=== PATIENT | female | born 1985 | race Asian ===

== ENCOUNTER → 2020-10-08 11:39 | Outpatient (CLI) | payer OTHER, SELFPAY ==
[2020-10-08 13:05] LABS: NATERA MAILED SPECIMEN
== END ==
PROVIDERS: PCP Family Medicine; Visit Provider Obstetrics & Gynecology
DX: Z31.5 Encounter for procreative genetic counseling (principal)
CPT/HCPCS: 36415

== ENCOUNTER 2022-02-27 12:08 | Inpatient (IN) | payer BC, SELFPAY ==
[2022-02-27] VITALS (19 sets, daily range): BP systolic 102–138; BP diastolic 61–86; PULSE 71–100; TEMP 36.4–36.6; O2SAT 94–100; BMI 26.8
[2022-02-27] MEDS: Lactated Ringers 1,000 ML 50 ML IV ×2 (13:00→22:26)
[2022-02-27 13:05] LABS: Absolute Lymphocyte Count 1.54 X10^3/uL (0.83-4.51); Absolute Neutrophil Count 8.7 X10^3/uL (2.0-7.7); Basophil# 0.05 X10^3/uL; Basophil% 0.4 % (0-1); Eosinophil# 0.05 X10^3/uL; Eosinophils% 0.4 % (0-5); Hematocrit 41.2 % (37-47); Hemoglobin 13.2 g/dL (12.0-15.0); Lymphocyte # 1.54 X10^3/ul (0.83-4.51); Lymphocyte % 13.5 % (19-41); Mean Corpuscular Hgb 28.3 pg (27.0-32.0); Mean Corpuscular Volume 88.2 fL (81-99); Mean Platelet Vol. 10.6 fl (6.2-12.0); Monocyte# 0.95 X10^3/uL; Monocyte% 8.3 % (0-10); NRBC Flagged by Analyzer 0 % (0-5); Neutrophil # 8.72 X10^3/uL (2.7-7.7); Neutrophil % 76.7 % (47-70); Platelet Count 264 K/mm3 (150-450); RBC Distribution Width CV 13.1 % (11.6-14.6); RBC Distribution Width SD 41.6 fl (35.1-43.9); Red Blood Count 4.67 M/mm3 (4.2-5.4); White Blood Count 11.4 K/mm3 (4.4-11.0)
[2022-02-27] MEDS: Penicillin G 3,000,000 Units 50 ML 100 UNITS IV ×2 (18:13→22:21)
[2022-02-27] MEDS: Oxytocin 15 Units/NS 250ml 15 UNITS/250 ML IV.SOLN 2 UNITS IV (20:37)
[2022-02-27] MEDS: LACTATED RINGERS 500 ML 999 ML IV (21:21)
[2022-02-27] MEDS: fentaNYL-bupivacaine (epidural) 100 ML BAG EPIDURAL (22:48)
[2022-02-27] MEDS: Ondansetron 4 MG/2 ML Vial IV (23:41)
[2022-02-27] MEDS: 0.9% Saline Lock 10 ML Syringe IV (23:41)
[2022-02-28] VITALS (37 sets, daily range): BP systolic 102–145; BP diastolic 55–86; PULSE 71–110; RESP 16; TEMP 36.2–38.8; O2SAT 82–100
[2022-02-28] MEDS: fentaNYL-bupivacaine (epidural) 100 ML BAG EPIDURAL ×2 (02:58→08:26)
[2022-02-28] MEDS: Penicillin G 3,000,000 Units 50 ML 100 UNITS IV (02:58)
[2022-02-28] MEDS: LACTATED RINGERS 500 ML 999 ML IV (04:31)
[2022-02-28] MEDS: Acetaminophen 500 MG Tablet PO ×2 (05:07→11:16)
[2022-02-28] MEDS: Lactated Ringers 1,000 ML 200 ML IV (06:22)
--- NOTE | 2022-02-28 11:10 | PLAC_PTH ---
PATIENT: ROSALINO DELGADO LOC: [facility] U#:[id number] AGE/SX: 36/F ROOM: WP016 RE02/27/[address]: Dr. Narda Rust MD : 1985 BED: 1 DIS: 03/02/2022 SPEC #: [id number] RECD: 02/28/22 11:41 STATUS: SUSAN REMason #: [id number] ADAM: 02/28/22 11:[address]: Narda Rust DEPT: SURGICAL PATHOLOGY RECD BY: Demetrice Hebert ENTERED: 03/02/22 10:16 SP TYPE: PLACENTA OTHR DR: Dr. Mika Whitman MD Tissues: Placenta, NOS Procedures: Surgery Specimen Level V HEADER OPERATION: Vaginal delivery PRE-OP DIAGNOSIS: Fever in labor, suspected triple I TISSUE SUBMITTED: Placenta MICROSCOPIC DIAGNOSIS Rebolledo placenta (550 gm): Umbilical cord ? trivascular with acute funisitis. Placental membranes ? acute chorioamnionitis and acute deciduitis. Placental disc ? acute vasculitis of superficial placental vessels, Melani-Pete change and intervillous congestion. AM:allen 03/04/2022 MICROSCOPIC DESCRIPTION Slides are reviewed. GROSS DESCRIPTION SPECIMEN: PLACENTA / CLINICAL INFORMATION: A. Weight: 3.595 kg B. Gestational Age: 40 weeks C. Sex: Female PLACENTAL WEIGHT (POST FIXATION): 550 gm PLACENTAL DIMENSIONS: 18 x 18 x 4.5 cm PLACENTAL SHAPE: Usual ovoid PLACENTAL WEIGHT FOR GESTATIONAL AGE: Over 99th percentile MEMBRANES - Present A. Insertion: Marginal B. Site of rupture from edge: 3 cm from edge of placental disc C. Color of membrane: Patel-reynoso D. Abnormalities: None UMBILICAL CORD - Present A. Color: Patel-reynoso B. Insertion: Paracentral C. Length: 24 cm. Present in the container is a detached segment of umbilical cord measuring 28 cm in length and 1 cm in diameter. D. Diameter: 1 cm E. Number of vessels: Three F. Abnormalities: None PLACENTAL DISC - Present A. Color of surface: Patel-reynoso B. surface abnormalities: None C. Maternal cotyledons: Intact with minimal tears D. Attached retro placental clot: No clot E. Cut surface: Dark red and spongy F. Lesions: None G. Separate clot: Absent SECTIONS SUBMITTED: 1. Membrane roll 2. Cord, maternal end 3. Cord, end 4. Placental disc, and maternal surfaces 5. Placental disc, and maternal surfaces 6. Placental disc, and maternal surfaces SJ:allen 03/03/2022 TC:2 CPT: 43237
--- NOTE | 2022-02-28 11:12 | PCM.HP.OB ---
HPI - General General Date of Admission: 02/27/22 Date of Service: 02/28/22 HPI Narrative ROSALINO DELGADO, is a 36 YOF w/ KAREN of 02/28/22 who presented for induction of labor due to advanced maternal age. She has had irreg. ctxs. Good FM. Had appointment in office 02/27 w/ normal AFV on US. Maternal Data Information Final KAREN: 02/28/22 Gestational age: 40 0/7 PFSH PFSH Medical History (Updated 02/28/22 @ 11:[address] Narda Rust MD) Anxiety Depression Home Medications levothyroxine 125 mcg tablet (Synthroid) 125 mcg PO DAILY thyroid 02/27/22 [History Last Taken Unknown] [id number] 1 mg tablet 1 tab PO DAILY 02/27/22 [History Last Taken Unknown] Allergy/AdvReac Type Severity Reaction Status Date / Time ciprofloxacin Allergy Rash Verified 02/27/22 13:42 fluconazole [From Diflucan] Allergy Rash Verified 02/27/22 13:42 Family History no significant family his Surgical History no surgical history Social History Smoking Status: Never smoker History Elective abortions Hx Para 0 Spontaneous abortions Hx # Term Pregnancies Ectopic pregnancies Hx # Pregnancies Multiple births # of living children ROS Constitutional Constitutional: Denies fatigue, fever(s) or malaise Eyes Eyes: Denies change in vision ENT HEENT: Denies dizziness or headache(s) Cardiovascular Cardiovascular: Denies chest pain, dyspnea or lightheadedness Respiratory/Chest Respiratory/Chest: Denies cough or dyspnea Gastrointestinal Gastrointestinal: Denies change in bowel habits Genitourinary Genitourinary: Denies burning urination or genital lesions Integumentary Integumentary: Denies rash Neurologic Neurologic: Denies confusion, dizziness, headache(s), numbness or weakness Vital Signs Vital Signs Vital Signs: 02/27/22 11:46 02/27/22 11:46 02/27/22 15:45 Temperature Temperature Source Pulse Rate 71 Blood Pressure 116/69 126/85 H BP Systolic 116 126 BP Diastolic 69 85 Pulse Ox 02/27/22 15:45 02/27/22 15:45 02/27/22 15:48 Temperature Temperature Source Temporal Pulse Rate 82 83 Blood Pressure BP Systolic BP Diastolic Pulse Ox 02/27/22 15:48 02/27/22 15:45 02/27/22 19:27 Temperature 97.7 F L Temperature Source Pulse Rate Blood Pressure 138/70 H BP Systolic 138 BP Diastolic 70 Pulse Ox 97 02/27/22 19:27 02/27/22 19:28 02/27/22 19:28 Temperature Temperature Source Pulse Rate 89 79 Blood Pressure BP Systolic BP Diastolic Pulse Ox 99 02/27/22 19:28 02/27/22 19:28 02/27/22 20:29 Temperature 97.5 F L Temperature Source Temporal Pulse Rate Blood Pressure 136/78 H BP Systolic 136 BP Diastolic 78 Pulse Ox 02/27/22 20:29 02/27/22 20:30 02/27/22 20:30 Temperature Temperature Source Pulse Rate 78 81 Blood Pressure BP Systolic BP Diastolic Pulse Ox 99 02/27/22 20:29 02/27/22 20:29 02/27/22 22:32 Temperature 97.8 F Temperature Source Temporal Pulse Rate 84 Blood Pressure BP Systolic BP Diastolic Pulse Ox 02/27/22 22:32 02/27/22 22:37 02/27/22 22:37 Temperature Temperature Source Pulse Rate 89 Blood Pressure 124/78 H BP Systolic 124 BP Diastolic 78 Pulse Ox 100 02/27/22 22:37 02/27/22 22:37 02/27/22 22:42 Temperature Temperature Source Pulse Rate 92 Blood Pressure 122/74 H BP Systolic 122 BP Diastolic 74 Pulse Ox 99 02/27/22 22:42 02/27/22 22:42 02/27/22 22:48 Temperature Temperature Source Pulse Rate 76 Blood Pressure 102/73 BP Systolic 102 BP Diastolic 73 Pulse Ox 99 02/27/22 22:48 02/27/22 22:50 02/27/22 22:50 Temperature Temperature Source Pulse Rate 92 97 Blood Pressure BP Systolic BP Diastolic Pulse Ox 100 02/27/22 22:53 02/27/22 22:53 02/27/22 22:55 Temperature Temperature Source Pulse Rate 100 95 Blood Pressure 123/76 H BP Systolic 123 BP Diastolic 76 Pulse Ox 02/27/22 22:55 02/27/22 23:00 02/27/22 23:00 Temperature Temperature Source Pulse Rate 93 Blood Pressure BP Systolic BP Diastolic Pulse Ox 100 94 02/27/22 23:01 02/27/22 23:01 02/27/22 23:05 Temperature Temperature Source Pulse Rate 81 89 Blood Pressure 105/61 BP Systolic 105 BP Diastolic 61 Pulse Ox 02/27/22 23:05 02/27/22 23:08 02/27/22 23:08 Temperature Temperature Source Pulse Rate 90 Blood Pressure 114/83 H BP Systolic 114 BP Diastolic 83 Pulse Ox 98 02/27/22 23:10 02/27/22 23:10 02/27/22 23:10 Temperature Temperature Source Pulse Rate 83 Blood Pressure 109/86 H BP Systolic 109 BP Diastolic 86 Pulse Ox 100 02/28/22 00:12 02/28/22 00:12 02/28/22 00:14 Temperature 98.4 F Temperature Source Temporal Pulse Rate Blood Pressure 104/55 L BP Systolic 104 BP Diastolic 55 Pulse Ox 02/28/22 00:14 02/28/22 00:13 02/28/22 01:26 Temperature Temperature Source Temporal Pulse Rate 77 Blood Pressure BP Systolic BP Diastolic Pulse Ox 96 02/28/22 01:26 02/28/22 01:26 02/28/22 01:26 Temperature Temperature Source Pulse Rate 80 Blood Pressure 102/59 L BP Systolic 102 BP Diastolic 59 Pulse Ox 97 02/28/22 01:26 02/28/22 02:25 02/28/22 02:26 Temperature 98.4 F Temperature Source Temporal Pulse Rate Blood Pressure 115/68 BP Systolic 115 BP Diastolic 68 Pulse Ox 02/28/22 02:26 02/28/22 02:25 02/28/22 02:27 Temperature 98.6 F Temperature Source Pulse Rate 93 110 H Blood Pressure BP Systolic BP Diastolic Pulse Ox 02/28/22 02:27 02/28/22 03:31 02/28/22 03:31 Temperature Temperature Source Pulse Rate 110 H Blood Pressure 131/79 H BP Systolic 131 BP Diastolic 79 Pulse Ox 82 02/28/22 03:31 02/28/22 03:32 02/28/22 03:32 Temperature Temperature Source Temporal Pulse Rate 104 H Blood Pressure BP Systolic BP Diastolic Pulse Ox 100 02/28/22 03:31 02/28/22 04:37 02/28/22 04:37 Temperature 97.1 F L Temperature Source Pulse Rate 93 Blood Pressure 121/74 H BP Systolic 121 BP Diastolic 74 Pulse Ox 02/28/22 04:38 02/28/22 04:38 02/28/22 04:44 Temperature 99.1 F Temperature Source Temporal Oral Pulse Rate Blood Pressure BP Systolic BP Diastolic Pulse Ox 02/28/22 04:44 02/28/22 05:12 02/28/22 05:12 Temperature 101.8 F H 100.7 F H Temperature Source Temporal Pulse Rate Blood Pressure BP Systolic BP Diastolic Pulse Ox 02/28/22 05:34 02/28/22 05:34 02/28/22 05:34 Temperature Temperature Source Pulse Rate 105 H Blood Pressure 114/68 BP Systolic 114 BP Diastolic 68 Pulse Ox 95 02/28/22 06:13 02/28/22 06:13 02/28/22 06:26 Temperature 99.5 F H Temperature Source Oral Pulse Rate Blood Pressure 127/77 H BP Systolic 127 BP Diastolic 77 Pulse Ox 02/28/22 06:26 02/28/22 07:27 02/28/22 07:27 Temperature Temperature Source Pulse Rate 93 83 Blood Pressure 123/73 H BP Systolic 123 BP Diastolic 73 Pulse Ox 02/28/22 07:27 02/28/22 07:27 02/28/22 07:26 Temperature Temperature Source Temporal Pulse Rate 87 Blood Pressure BP Systolic BP Diastolic Pulse Ox 100 02/28/22 07:26 02/28/22 07:26 02/28/22 08:51 Temperature 97.7 F L Temperature Source Pulse Rate Blood Pressure 114/78 BP Systolic 114 BP Diastolic 78 Pulse Ox 100 02/28/22 08:51 02/28/22 08:51 02/28/22 08:50 Temperature Temperature Source Temporal Pulse Rate 93 Blood Pressure BP Systolic BP Diastolic Pulse Ox 100 02/28/22 08:50 02/28/22 08:50 02/28/22 10:17 Temperature 98.2 F Temperature Source Temporal Pulse Rate Blood Pressure BP Systolic BP Diastolic Pulse Ox 100 02/28/22 10:17 02/28/22 10:19 02/28/22 10:19 Temperature 99.2 F H Temperature Source Pulse Rate 80 Blood Pressure 125/65 H BP Systolic 125 BP Diastolic 65 Pulse Ox 02/28/22 11:08 02/28/22 11:08 02/28/22 11:08 Temperature Temperature Source Temporal Pulse Rate 108 H Blood Pressure 136/83 H BP Systolic 136 BP Diastolic 83 Pulse Ox 02/28/22 11:08 Temperature 99.8 F H Temperature Source Pulse Rate Blood Pressure BP Systolic BP Diastolic Pulse Ox Weight Weight: 83.642 kg Body Mass Index (BMI) 26.8 Physical Exam Const alert and no apparent distress General Appearance: cooperative HEENT normocephalic Resp normal respiratory effort Cardio regular rate GI soft to palpation GI Narrative: gravid, nontender, appropriate for gestational age Extremity no calf tenderness General Extremity: edema Skin no wounds Rashes: No rashes noted Psych activity/motor behavior normal Labs Labs Labs: Blood Type O POSITIVE Antibody Screen NEGATIVE Hct 41.2 % (37-47) Hgb 13.2 g/dL (12.0-15.0) Assessment & Plan (1) 40 weeks gestation of : PLAN: Risk benefits and alternatives to induction labor him discussed with the patient, her questions were answered to her satisfaction she desired to proceed. Estimated weight is less than 4500 g clinically and pelvis clinically adequate to expect vaginal delivery. Plan Borges, Pitocin and artificial rupture membranes if needed for induction of labor. May use routine pain control measures as desired and as needed. Procedure note: Borges catheter placed over stylette into the internal cervical os in the usual sterile fashion. Incidental rupture of membranes with moderate amount of clear fluid returned. Broges placement over internal os confirmed and was inflated to 30 cc. Patient and fetus tolerated the procedure well. Will initiate Pitocin as needed. Patient is janis pretty regularly now. (2) Encounter for induction of labor:
--- NOTE | 2022-02-28 11:18 | EX.PCM.OBRPT ---
Assessment & Plan (1) 40 weeks gestation of : (2) (spontaneous vaginal delivery): (3) Second degree perineal laceration: (4) Single live : Maternal Data Information Final KAREN: 02/28/22 Gestational age: 40 0/7 Details Operative Information Date of Procedure: 02/28/22 Vaginal Delivery Maternal Presentation Maternal Presentation: Medically Indicated Induction Type of Induction: Pitocin, Borges Bulb and Amniotomy Operative Information Date of Procedure: 02/28/22 Pre-Operative Diagnosis: labor Post-Operative Diagnosis: same, suspected Triple I w/ maternal fever and tachycardia Surgery / Procedure Performed: Spontaneous Vaginal Delivery Type of Anesthesia: Epidural Special Medications: none Drain: Borges to straight drain Estimated Blood Loss: 500 Time of Delivery: 10:48 Findings Description of Procedure: A vigorous female was delivered OLIVE over a second-degree perineal laceration. The remainder the infant was delivered with maternal pushing and gentle traction only in less than 15 seconds. The Pitocin infusion was initiated for active management of the third stage. The cord was clamped and cut after 1 minute. The was attended to by the waiting nursing staff. The placenta was delivered spontaneously and intact. The cervix and vagina were intact. The second-degree perineal laceration was repaired with 2-0 Vicryl suture in a running standard fashion. Sponge and needle counts were correct. A vaginal sweep was completed by me. Presentation: OLIVE Amniotic Membrane Rupture Type: Artificial Amniotic Fluid Description: Clear Placental Delivery Description: Spontaneous Placenta Disposition: Sent to Pathology Cord Vessel Description: 3 Vessels Cord Entanglement: None A Gender: Female (Karli) (1 minute): 8 (5 minute): 10 Delayed Cord Clamping: Yes Post Vaginal Delivery Medications Given After Delivery: IV Pitocin Episiotomy Description: None Laceration: 2nd degree Complication Complications: None Admit VTE Documentation VTE Present on Admission: No Reason Prophylaxis Not Ordered: Procedure Not Indicated
[2022-02-28 12:22] LABS: Hematocrit 34.7 % (37-47); Hemoglobin 11.7 g/dL (12.0-15.0); Mean Corp Hgb Conc 33.7 g/dL (32-36); Mean Corpuscular Volume 86.1 fL (81-99); Mean Platelet Vol. 10.2 fl (6.2-12.0); Platelet Count 204 K/mm3 (150-450); RBC Distribution Width CV 12.8 % (11.6-14.6); Red Blood Count 4.03 M/mm3 (4.2-5.4); White Blood Count 21.8 K/mm3 (4.4-11.0)
[2022-02-28 12:35] LABS: AST(SGOT) 46 U/L (15-37); Alanine Aminotransfer ALT/SGPT 55 U/L (13-56); Creatinine, Serum 0.79 mg/dL (0.55-1.02); EST Glomerular Filtration Rate 86 mL/min (>60); Est Glom Filt Rate - Afr Amer 105 mL/min (>60); Uric Acid 4.3 mg/dL (2.6-6.0)
[2022-02-28] MEDS: Ibuprofen 600 MG Tablet PO (16:15)
[2022-02-28] MEDS: Senna/Docusate Sodium 1 Tablet PO (16:16)
--- NOTE | 2022-02-28 16:27 | NURSING ---
1600 pt oob up to br to void; pt gait steady; pericare demonstrated; new ice pack and tucks on; pt unable to void; pt cleaned up at sink then returned to chair; medicated for pain
[2022-02-28] MEDS: Naproxen 500 MG Tablet PO (21:27)
[2022-02-28] MEDS: Acetaminophen 500 MG Tablet 1000 MG PO (22:50)
[2022-03-01] VITALS (7 sets, daily range): BP systolic 93–130; BP diastolic 52–81; PULSE 64–81; RESP 16; TEMP 36.1–36.6; O2SAT 97–99
[2022-03-01] MEDS: Levothyroxine 125 MCG Tablet PO (05:32)
[2022-03-01 05:38] LABS: Hematocrit 30.9 % (37-47); Hemoglobin 10.1 g/dL (12.0-15.0); Mean Corp Hgb Conc 32.7 g/dL (32-36); Mean Corpuscular Hgb 28.5 pg (27.0-32.0); Mean Corpuscular Volume 87.3 fL (81-99); Mean Platelet Vol. 10.4 fl (6.2-12.0); Platelet Count 199 K/mm3 (150-450); RBC Distribution Width CV 12.9 % (11.6-14.6); RBC Distribution Width SD 41.5 fl (35.1-43.9); Red Blood Count 3.54 M/mm3 (4.2-5.4); White Blood Count 18.6 K/mm3 (4.4-11.0)
--- NOTE | 2022-03-01 08:36 | PCM.PN.OB ---
Subjective Subjective Patient seen at bedside. Pain is controlled. Ambulating and voiding without difficulty. with support. Anticipate discharge home tomorrow. Objective Data Objective Data Vital Signs: Vital Signs Temp Pulse Resp BP Pulse Ox O2 Del Method 97.1 F L 70 16 107/72 99 Room Air 03/01/22 08:13 03/01/22 08:13 03/01/22 08:13 03/01/22 08:13 03/01/22 08:13 03/01/22 08:13 Oxygen Delivery Method Room Air Weight: 184 lb 6.4 oz Body Mass Index (BMI) 26.8 Intake & Output: Intake and Output for Last 24 Hours 02/27/22 02/28/22 03/01/22 23:59 23:59 23:59 Intake Total 1533.34 / 1533.34 2905.34 / 2905.34 Output Total 3000 / 3000 Balance 1533.34 / 1533.34 -94.66 / -94.66 Lab / Micro Data Result Diagrams: 03/01/22 05:25 02/28/22 12:10 Labs: Laboratory Results - last 24 hr 02/28/22 12:10: WBC 21.8 H, RBC 4.03 L, Hgb 11.7 L, Hct 34.7 L, MCV 86.1, MCH 29.0, MCHC 33.7 D, RDW Std Deviation 40.0, RDW Coeff of Suad 12.8, Plt Count 204, MPV 10.2 02/28/22 12:10: Creatinine 0.79, Estim Creat Clear Calc 101.90, Est GFR (MDRD) Af Amer 105, Est GFR (MDRD) Non-Af 86, Uric Acid 4.3, AST 46 H, ALT 55 03/01/22 05:25: WBC 18.6 H, RBC 3.54 L, Hgb 10.1 L, Hct 30.9 L, MCV 87.3, MCH 28.5, MCHC 32.7, RDW Std Deviation 41.5, RDW Coeff of Suad 12.9, Plt Count 199, MPV 10.4 ROS Eyes Eyes: Denies blurry vision, change in vision or spots in vision ENT HEENT: Denies dizziness or headache(s) Cardiovascular Cardiovascular: Denies abdominal pain, chest pain or dyspnea Respiratory/Chest Respiratory/Chest: Denies cough, dyspnea, shortness of breath at rest or shortness of breath with exertion Gastrointestinal Gastrointestinal: Denies abdominal pain, diarrhea or vomiting Genitourinary Genitourinary: Denies change in urinary stream, difficulty urinating or dysuria Musculoskeletal Musculoskeletal: Reports none Integumentary Integumentary: Denies rash Neurologic Neurologic: Denies dizziness, headache(s), memory loss or weakness Physical Exam Const alert and no apparent distress General Appearance: cooperative and comfortable Exam Limitations: no limitations HEENT normocephalic Eyes General Eye: normal appearance of both eyes Neck full ROM General: normal visual inspection Chest Chest: symmetrical chest wall rise Resp normal respiratory effort and normal air movement Effort and Inspection: symmetric chest movement Auscultation: clear to auscultation bilaterally Cardio regular rate and regular rhythm GI normal to inspection, nondistended, normoactive bowel sounds Back/Spine normal ROM Extremity full ROM and no calf tenderness General Extremity: normal exam except as noted Skin no rashes or lesions noted Neuro CN's II-XII intact bilaterally Psych mental status grossly normal Assessment & Plan (1) Single live : (2) Second degree perineal laceration: (3) (spontaneous vaginal delivery): (4) Care and examination of lactating mother: PLAN: Plan PPD 1 Routine care Pain control Anticipate discharge home tomorrow
[2022-03-01] MEDS: Senna/Docusate Sodium 1 Tablet PO (14:04)
[2022-03-01] MEDS: Benzocaine/Lanolin/Aloe Vera 1 SPRAY EACH TOPICAL (14:05)
[2022-03-01] MEDS: Naproxen 500 MG Tablet PO ×2 (14:14→22:00)
[2022-03-01] MEDS: Acetaminophen 500 MG Tablet 1000 MG PO (16:55)
[2022-03-02] MEDS: Acetaminophen 500 MG Tablet 1000 MG PO (00:01)
[2022-03-02 01:25] VITALS: BP 125/66; PULSE 63; RESP 16; TEMP 36.4; O2SAT 98; O2SAT 99
[2022-03-02 01:26] VITALS: BP 125/66; PULSE 62
[2022-03-02] MEDS: Levothyroxine 125 MCG Tablet PO (05:44)
--- NOTE | 2022-03-02 07:24 | PCM.PN.OB ---
Subjective Subjective Patient seen at bedside. Sitting in chair at bedside. Feeling good. Desires discharge home today. Denies any headache, vision changes, SOB or CP. Ambulating and voiding without difficulty. Had BM yesterday. with minimal support. Objective Data Objective Data Vital Signs: Vital Signs Temp Pulse Resp BP Pulse Ox O2 Del Method 97.6 F L 62 16 125/66 H 98 Room Air 03/02/22 01:25 03/02/22 01:26 03/02/22 01:25 03/02/22 01:26 03/02/22 01:25 03/02/22 01:25 Oxygen Delivery Method Room Air Weight: 184 lb 6.4 oz Body Mass Index (BMI) 26.8 Intake & Output: Intake and Output for Last 24 Hours 02/28/22 03/01/22 03/02/22 23:59 23:59 23:59 Intake Total 2905.34 / 2905.34 Output Total 3000 / 3000 Balance -94.66 / -94.66 Lab / Micro Data Result Diagrams: 03/01/22 05:25 02/28/22 12:10 ROS Eyes Eyes: Denies blurry vision, change in vision or spots in vision ENT HEENT: Denies dizziness or headache(s) Cardiovascular Cardiovascular: Denies abdominal pain, chest pain or dyspnea Respiratory/Chest Respiratory/Chest: Denies cough, dyspnea, shortness of breath at rest or shortness of breath with exertion Gastrointestinal Gastrointestinal: Denies abdominal pain, diarrhea or vomiting Genitourinary Genitourinary: Denies change in urinary stream, difficulty urinating or dysuria Musculoskeletal Musculoskeletal: Reports none Integumentary Integumentary: Denies rash Neurologic Neurologic: Denies dizziness, headache(s), memory loss or weakness Physical Exam Const alert and no apparent distress General Appearance: cooperative and comfortable Exam Limitations: no limitations HEENT normocephalic Eyes General Eye: normal appearance of both eyes Neck full ROM General: normal visual inspection Chest Chest: symmetrical chest wall rise Resp normal respiratory effort and normal air movement Effort and Inspection: symmetric chest movement Auscultation: clear to auscultation bilaterally Cardio regular rate and regular rhythm GI normal to inspection, nondistended, normoactive bowel sounds Back/Spine normal ROM Extremity full ROM and no calf tenderness General Extremity: normal exam except as noted Skin no rashes or lesions noted Neuro CN's II-XII intact bilaterally Psych mental status grossly normal Assessment & Plan (1) Care and examination of lactating mother: (2) Single live : (3) Second degree perineal laceration: (4) (spontaneous vaginal delivery): PLAN: Plan PPD 2 Routine care support D/C home with follow up in office
--- NOTE | 2022-03-02 07:27 | DCINST_ITS ---
Discharge Instructions Diet Discharge Diet: No restrictions Activity Discharge Activity: Return to Normal Activity, May Shower and May Take a Tub Bath May resume sexual activity in: 4-6 weeks Weight Bearing Status: Weight bearing as tolerated Dressing / Incision Call your doctor if you observe: Inability to urinate, Using more than 1 pad per hour, Shortness of breath, Dizziness, Swelling in the ankles, Chest pain, Calf discomfort and Uncontrolled pain Follow Up Care Please Follow Up With: Narda Rust MD When: Within 10 days Test Results: Test results from this visit will be discussed in further detail at your follow- up appointment, if applicable. Discharge Plan Admission Admit Date/Time: 02/27/22 12:08 Attending Provider: Narda Rust Primary Care Provider: Mika Whitman Discharge Orders/Prescriptions Prescriptions: No Action levothyroxine [Synthroid] 125 mcg Tablet 125 mcg PO DAILY + Iron 1 mg Tablet 1 tab PO DAILY Referrals / Follow Up: Mika Whitman MD [Primary Care Provider] - Disposition Disposition (needs filled in before D/C Order can be placed): Home, Self Care
[2022-03-02 08:00] VITALS: BP 117/73; PULSE 65; RESP 14; TEMP 36.1; O2SAT 100
[2022-03-02 08:18] VITALS: BP 117/73; PULSE 64; PULSE 67; O2SAT 100
[2022-03-02 13:00] VITALS: BP 120/74; PULSE 67; RESP 14; TEMP 36.4; O2SAT 100
[2022-03-04 15:39] LABS: Pathology Specimen OB SEE PATHOLOGY REPORT
== END 2022-03-02 13:40 | disposition home or self-care (01) | DRG 807 ==
LOC: WPOUT 12:14 → WP 12:14
PROVIDERS: Admitting Provider Obstetrics & Gynecology; PCP Family Medicine; Visit Provider Obstetrics & Gynecology
DX: O70.1 Second degree perineal laceration during delivery (principal); Z37.0 Single live birth; O76 Abnormality in fetal heart rate and rhythm complicating labor and delivery; Z03.71 Encounter for suspected problem with amniotic cavity and membrane ruled out; Z79.890 Hormone replacement therapy; Z79.899 Other long term (current) drug therapy; Z3A.40 40 weeks gestation of pregnancy
CPT/HCPCS: 59025; 59050; 82565; 84450; 84460; 84550; 85025; 85027; 86850; 86900; 86901; 88307; 99218; J7120; A4216; G0378; J2405